=== PATIENT | female | born 1965 | race Caucasian/White ===

== ENCOUNTER 2016-10-18 21:53 | Inpatient (IN) | payer MEDICAID, OTHER ==
[~2016-10-18] VITALS: Ht 170.2 cm; Wt 104.3 kg
[~2016-10-18 21:53] MED LIST: ACET-2991 PO; AMOX-999 PO; ONDA4TAB PO
--- NOTE | 2016-10-18 21:58 | NUR ---
Patient being evaluated by physician.
[2016-10-18] MEDS ORDERED: LORazepam 2 MG/ML VIAL IVP ONE (22:00)
[2016-10-18] MEDS ORDERED: KETOROLAC 30 MG/ML VIAL IVP ONE (22:00)
[2016-10-18] MEDS ORDERED: NACL 0.9% 1,000 ML IV ONE (22:00)
--- NOTE | 2016-10-18 22:04 | NUR ---
BIBA TO ER BED 5
[2016-10-18 22:05] VITALS: BP 148/89
--- NOTE | 2016-10-18 22:10 | NUR ---
GAUGE 20 IV LINE ESTABLISHED TO THE RIGHT FOREARM. NS 1 LITER @ 100 ML/HR,ATIVAN 2 MG IVP AND TORADOL 30 MG IVP GIVEN ORDERED.
--- NOTE | 2016-10-18 22:20 | NUR ---
PATIENT MORE CALM. PAIN BETTER. WENT FOR CT SCAN OF ABDOMEN AND PELVIS VIA GURNEY.
--- NOTE | 2016-10-18 22:32 | NUR ---
BACK FROM CT SCAN.
--- NOTE | 2016-10-18 22:45 | NUR ---
BLOOD DRAWN BY FEDER[employer] JUDICIAL LAW CLERK. VERBALIZED SOME IMPROVEMENT OF PAIN (8/10).
[2016-10-18 22:55] LABS: HEMATOCRIT 43.1 % (36-48); HEMOGLOBIN 14.1 g/dL (12.0-16.0); MEAN CORPUSCULAR HEMOGLOBIN 28 pg (27-31); MEAN CORPUSCULAR HGB CONC 33 g/dL (33-37); MEAN CORPUSCULAR VOLUME 86 fL (80-94); PLATELET COUNT (AUTO) 274 K/uL (140-450); RED BLOOD CELL COUNT(AUTO) 4.99 MIL/uL (4.20-5.40); RED CELL DISTRIBUTION WIDTH 13.3 % (11.6-13.7); WHITE BLOOD COUNT (AUTO) 14.9 K/uL (4.8-10.8)
[2016-10-18 23:08] LABS: BAND % (MANUAL) 21 % (0-8); LYMPHOCYTES % (MANUAL) 16 % (20-46); MONOCYTES % (MANUAL) 1 % (5-12); NEUTROPHILS % (MANUAL) 62 (43-65)
[2016-10-18 23:11] LABS: ANION GAP 12.6 (8-16); CALCIUM 9.2 mg/dL (8.5-10.1); CARBON DIOXIDE 28.7 mmol/L (21-32); POTASSIUM 3.3 mmol/L (3.5-5.1); TOTAL BILIRUBIN 0.3 mg/dL (0.0-1.0); TOTAL PROTEIN, SERUM 8.2 g/dL (6.4-8.2)
[2016-10-18 23:17] LABS: INR 1.1 (0.8-1.2); PARTIAL THROMBOPLASTIN TIME 23.3 secs (22-35.6); PROTHROMBIN TIME 10.4 secs (10.8-13.4)
[2016-10-18] MEDS ORDERED: fentaNYL 0.05 MG/ML VIAL IVP ONE (23:20)
[2016-10-18] MEDS ORDERED: LORazepam 2 MG/ML VIAL IVP PRN (23:25)
[2016-10-18] MEDS ORDERED: HYDROcodone/APAP 5/325 MG 1 TAB TAB PO PRN (23:25)
[2016-10-18] MEDS ORDERED: KCL 20 MEQ/WATER INJ PREMIX 100 ML IV SCH (23:30)
--- NOTE | 2016-10-18 23:30 | NUR ---
PT. ADMITTED TO TELEMETRY UNIT FOR INCARCERATED HERNIA. UNDER THE SERVICE OF . VS REMAIN STABLE.
--- NOTE | 2016-10-18 23:33 | NUR ---
SUBLIMAZE 50 MCG IVP GIVEN FOR PAIN=12/03.
[2016-10-18] MEDS ORDERED: PIPERACILLIN/TAZOBACTAM 3.375 GM in DEXTROSE 5% 50 ML IV SCH (23:40)
--- NOTE | 2016-10-19 | NUR ---
REPORT GIVEN TO RUBA NAPOLES. PT.GOING TO ROOM 119-A. PAIN BETTER. VS REMAIN STABLE.
[2016-10-19] MEDS ORDERED: ZOLPIDEM 5 MG TAB PO PRN (00:15)
--- NOTE | 2016-10-19 00:15 | NUR ---
TRANSFERRED TO FLOOR VIA ACLS PROTOCOL STABLE. TRANSFER UNEVENTFUL.
[2016-10-19] MEDS: NACL 0.9% 1,000 ML IV SCH ×2 (00:51→09:23)
[2016-10-19] MEDS ORDERED: PIPERACILLIN/TAZOBACTAM 3.375 GM VIAL IV ONE (00:57)
[2016-10-19 01:15] VITALS: BP 125/78
--- NOTE | 2016-10-19 01:30 | NUR ---
ADMITTED 51 Y.O.F.FROM ER.PLACED ON BED.ORIENTED TO ROOM.CALL SYSTEM EXPLAINED AND IN REACH.TELE APPLIED AND SHOWING SR.PT.IS AWAKE,ALERT AND ORIENTED.RESP UNLABORED IN RA.DENIED PAIN AT TIME OF ADMISSION.CARE PLAN DISCUSSED W/PT.SHE VERBALIZED UNDERSTANDING.SL PATENT IN RT.FA W/O REDNESS OR EDEMA AT SITE.WILL CONTINUE MONITORING.
[2016-10-19 01:41] LABS: CHOL/HDL RATIO 3.7 (1-4.5); MAGNESIUM 2.1 mg/dL (1.8-2.4); PHOSPHORUS 3.5 mg/dL (2.5-4.9)
[2016-10-19 04:00] VITALS: BP 109/65
--- NOTE | 2016-10-19 04:37 | NUR ---
IVF OF NS AT 100ML/H STARTED AND INFUSING WELL.ONE DOSE OF ZOSYN IVPB GIVEN.PT TOLERATED WELL.STARTED K-RIDER FOR PT.IV WAS INFILTRATED RESTARTED NEW IV LINE IN LT.FA W/#24 G IN 2ND ATTEMPT.PT COMPLAINED OF BURNING SENSATION.AND ASKED TO STOP K-RIDER IT DONE AND CALL RESIDENT HE SAID IN AM THEY WILL TAKE CARE OF THAT.
--- NOTE | 2016-10-19 06:21 | NUR ---
PT SLEEPING.NO S/S OF ANY DISCOMFORT NOTED.IVF IS IN PROGRESS.
[2016-10-19 06:36] LABS: FREE T4 (FREE THYROXINE) 1.06 ng/dL (0.76-1.46); THYROID STIMULATING HORMONE 5.99 uIU/mL (0.34-3.76)
--- NOTE | 2016-10-19 07:25 | NUR ---
REPORT RECIEVED FROM EPIC APPLICATION COORDINATOR NURSE, PT SLEEPING QUIETLY IN NAD, RESP EVEN UNLABORED ON ROOM AIR, IV TO L FA INFUSING WELL SITE CLEAR, NO IMMEDIATE NEEDS IDENTIFIED AT THIS TIME, CALL BEST WITHIN REACH, SAFETY MEASURES MET, SIDE RAILS UP X2, BED LOCKED IN LOW POSITION, WILL CONTINUE TO MONITOR
--- NOTE | 2016-10-19 07:56 | NUR ---
PATIENT HAS BEEN SCREENED AND CATEGORIZED MODERATE NUTRITION RISK. PATIENT WILL BE SEEN WITHIN 3-5 DAYS OF ADMISSION. 10/21/16-10/23/[address]
[2016-10-19 08:00] VITALS: BP 106/67
--- NOTE | 2016-10-19 10:05 | NUR ---
PT SITTING UP IN NAD, RESP EVEN UNLABORED, VISITOR AT BEDSIDE, NO IMMEDIATE NEEDS AT THIS TIME, POC DISCUSSED, CALL BEST WITHIN REACH, SAFETY MEASURES MET, WILL CONTINUE TO MONITOR
--- NOTE | 2016-10-19 12:24 | NUR ---
PER DR OWENS VIA PHONE, PT TO GO TO OR FOR HERNIA REPAIR, DR OWENS WILL CONSENT PT WHEN HE SEES PT, OR TEAM HERE TO TAKE PT NOW, PT AAOX4, VERBALIZES UNDERSTANDING OF PLAN, TO OR NOW ON MARC.
[2016-10-19] MEDS ORDERED: ONDANSETRON 4 MG/2 ML VIAL ONE (12:37)
[2016-10-19] MEDS ORDERED: ROCURONIUM 50 MG/5 ML VIAL IV ONE (12:37)
[2016-10-19] MEDS ORDERED: KETOROLAC 30 MG/ML VIAL ONE (12:37)
[2016-10-19] MEDS ORDERED: LIDOCAINE 2% 100 MG/5 ML SYR IVP ONE (12:37)
[2016-10-19] MEDS ORDERED: DEXAMETHASONE 4 MG/ML VIAL ONE (12:37)
[2016-10-19] MEDS ORDERED: DESFLURANE 240 ML BTL INH ONE (12:37)
[2016-10-19] MEDS ORDERED: PROPOFOL 200 MG/20 ML VIAL IV ONE (12:37)
[2016-10-19] MEDS ORDERED: SUCCINYLCHOLINE CHLORIDE 200 MG/10 ML VIAL IVP ONE (12:37)
[2016-10-19 12:40] LABS: BASOPHILS # (AUTO) 0.1 K/uL (0.00-0.22); BASOPHILS % (AUTO) 1.2 % (0.0-2.0); EOSINOPHILS # (AUTO) 0.2 K/uL (0-0.4); EOSINOPHILS % (AUTO) 2.1 % (0.0-4.0); HEMATOCRIT 39.6 % (36-48); LYMPHOCYTES # (AUTO) 2.2 K/uL (2.5-16.5); LYMPHOCYTES % (AUTO) 20.3 % (20.5-51.1); MEAN CORPUSCULAR HEMOGLOBIN 28 pg (27-31); MEAN CORPUSCULAR HGB CONC 33 g/dL (33-37); MEAN CORPUSCULAR VOLUME 86 fL (80-94); MONOCYTES # (AUTO) 0.6 K/uL (0.8-1.0); MONOCYTES % (AUTO) 5.9 % (1.7-9.3); NEUTROPHILS # (AUTO) 7.7 K/uL (1.8-7.7); NEUTROPHILS % (AUTO) 70.5 % (42.2-75.2); PLATELET COUNT (AUTO) 299 K/uL (140-450); RED BLOOD CELL COUNT(AUTO) 4.62 MIL/uL (4.20-5.40); WHITE BLOOD COUNT (AUTO) 10.8 K/uL (4.8-10.8)
[2016-10-19] MEDS ORDERED: BUPIVACAINE-MPF/EPI 0.25% 30 ML VIAL INJ ONE (12:52)
[2016-10-19 12:53] LABS: ANION GAP 12.4 (8-16); CALCIUM 8.3 mg/dL (8.5-10.1); CARBON DIOXIDE 25.5 mmol/L (21-32); CREATININE 0.8 mg/dL (0.6-1.3); POTASSIUM 3.9 mmol/L (3.5-5.1)
[2016-10-19 12:57] LABS: MAGNESIUM 2.1 mg/dL (1.8-2.4); PHOSPHORUS 3.4 mg/dL (2.5-4.9)
[2016-10-19] MEDS ORDERED: LACTOBACILLUS RHAMNOSUS GG 1 EACH CAP PO SCH (13:00)
[2016-10-19] MEDS ORDERED: POTASSIUM CHLORIDE 10 MEQ TABER PO SCH (13:00)
[2016-10-19] MEDS ORDERED: MIDAZOLAM 2 MG/2 ML VIAL ONE (13:05)
[2016-10-19] MEDS ORDERED: fentaNYL 0.05 MG/ML VIAL ONE (13:05)
[2016-10-19] MEDS ORDERED: ONDANSETRON 4 MG/2 ML VIAL IVP PRN (13:30)
[2016-10-19] MEDS: DEXT 5% / NACL 0.45% 1,000 ML IV SCH (15:15)
[2016-10-19 16:03] LABS: BASOPHILS # (AUTO) 0.2 K/uL (0.00-0.22); BASOPHILS % (AUTO) 1.6 % (0.0-2.0); EOSINOPHILS # (AUTO) 0.3 K/uL (0-0.4); EOSINOPHILS % (AUTO) 1.9 % (0.0-4.0); HEMATOCRIT 39.1 % (36-48); LYMPHOCYTES # (AUTO) 1.7 K/uL (2.5-16.5); LYMPHOCYTES % (AUTO) 11.1 % (20.5-51.1); MEAN CORPUSCULAR HEMOGLOBIN 28 pg (27-31); MEAN CORPUSCULAR HGB CONC 33 g/dL (33-37); MEAN CORPUSCULAR VOLUME 86 fL (80-94); MONOCYTES # (AUTO) 0.2 K/uL (0.8-1.0); MONOCYTES % (AUTO) 1.2 % (1.7-9.3); NEUTROPHILS % (AUTO) 84.2 % (42.2-75.2); PLATELET COUNT (AUTO) 310 K/uL (140-450); RED BLOOD CELL COUNT(AUTO) 4.56 MIL/uL (4.20-5.40); RED CELL DISTRIBUTION WIDTH 13.1 % (11.6-13.7); WHITE BLOOD COUNT (AUTO) 15.4 K/uL (4.8-10.8)
--- NOTE | 2016-10-19 16:03 | NUR ---
FAXED INITIAL REVIEW TO [facility] [phone] PHONE ALBERTO [phone]
[2016-10-19 16:18] LABS: ANION GAP 11.8 (8-16); CALCIUM 8.2 mg/dL (8.5-10.1); CARBON DIOXIDE 26.3 mmol/L (21-32); CREATININE 0.9 mg/dL (0.6-1.3); POTASSIUM 4.1 mmol/L (3.5-5.1)
--- NOTE | 2016-10-19 16:48 | NUR ---
PT RETURNED FROM PACU, PT AWAKE, DROWSY, SPEAKS CLEARLY, RESP EVEN UNLABORED ON ROOM AIR, NG TUBE TO RIGHT NARE, IV SITES BILAT HANDS CLEAR, MID ABD DRESSING AND BAND AIDS X5 CLEAN DRY INTACT, ABD SOFT, NON DISTENDED, VITALS STABLE, PT PLACED BACK ON DATA ANALYSIS ASSISTANT, CALL BEST WITH IN REACH, WILL CONTINUE TO MONITOR
[2016-10-19 16:50] VITALS: BP 118/69
[2016-10-19] MEDS: PIPER/TAZO 3.375GM/D5W PREMIX 50 ML IV SCH (17:38)
[2016-10-19] MEDS: MORPHINE SULFATE 4 MG/ML SYR IVP PRN (17:44)
--- NOTE | 2016-10-19 19:27 | NUR ---
ENDORSED PLAN OF CARE. WILL CONTINUE TO MONITOR.
--- NOTE | 2016-10-19 19:30 | NUR ---
RECEIVED PT FROM ANA RN PT [place] SPEAKER AAOX4 NG TUBE ON INTERMITTENT SUCTION, IV ON RT WRIST INFUSING WELL ON TELEMETRY SR ABD 3 BAND AIDS DRY AND INTACT AND MIDDLE ABD DRESSING DRY AND INTACT, HUNT CATH DRAINING WELL YELLOW URINE, ON TELEMETRY ST 104 INITIAL ASSESSMENT DONE
--- NOTE | 2016-10-19 19:31 | NUR ---
ABD WITH 5 BAND AIDS AND ONE MIDDLE DRESSING DRY AND INTACT
[2016-10-19 20:00] VITALS: BP 117/77
--- NOTE | 2016-10-19 20:00 | NUR ---
DR OWENS CALLED TO BE NOTIFY PT CONDITION AND ORDER TO FOLLOW
[2016-10-19] MEDS: HYDROmorphone 1 MG/ML AMP IVP PRN (20:47)
--- NOTE | 2016-10-19 20:47 | NUR ---
PT ASLEEP, CAN NOT DO IS
--- NOTE | 2016-10-19 23:00 | NUR ---
AFTER PAIN MEDIC GIVEN PT SLEEP QUIET NOT DISTRESS NOTED
[2016-10-20] VITALS: BP 130/89
[2016-10-20] MEDS: PIPER/TAZO 3.375GM/D5W PREMIX 50 ML IV SCH ×4 (00:05→17:32)
--- NOTE | 2016-10-20 01:07 | NUR ---
PT SLEEPING WELL NOT DISTRESS NOTES NG TUBE ON INTERMITTENT SUCTION AND HUNT CATH DRAINING WELL YELLOW URINE ON TELEMETRY SR REPOSITIONED NOT DISTRESS NOTED
--- NOTE | 2016-10-20 02:00 | NUR ---
PT PULL OUT THE NGTUBE AND A NEW NG TUBE WAS INSERTED DRAINING LIGHT GREENISH COLOR
[2016-10-20] MEDS: HYDROmorphone 1 MG/ML AMP IVP PRN (02:21)
[2016-10-20 04:00] VITALS: BP 110/69
--- NOTE | 2016-10-20 04:00 | NUR ---
PT REPOSITIONED NT GUBE DRAINING GREENISH COLOR DENIES ANY PAIN AT THIS TIME ONTELE SR
[2016-10-20] MEDS: DEXT 5% / NACL 0.45% 1,000 ML IV SCH (05:44)
[2016-10-20 06:23] LABS: BASOPHILS # (AUTO) 0.2 K/uL (0.00-0.22); BASOPHILS % (AUTO) 1.7 % (0.0-2.0); EOSINOPHILS # (AUTO) 0.2 K/uL (0-0.4); EOSINOPHILS % (AUTO) 1.8 % (0.0-4.0); HEMATOCRIT 36.1 % (36-48); LYMPHOCYTES # (AUTO) 1.3 K/uL (2.5-16.5); LYMPHOCYTES % (AUTO) 9.6 % (20.5-51.1); MEAN CORPUSCULAR HEMOGLOBIN 29 pg (27-31); MEAN CORPUSCULAR HGB CONC 33 g/dL (33-37); MEAN CORPUSCULAR VOLUME 86 fL (80-94); MONOCYTES # (AUTO) 0.6 K/uL (0.8-1.0); MONOCYTES % (AUTO) 4.3 % (1.7-9.3); NEUTROPHILS % (AUTO) 82.6 % (42.2-75.2); PLATELET COUNT (AUTO) 272 K/uL (140-450); RED BLOOD CELL COUNT(AUTO) 4.19 MIL/uL (4.20-5.40); RED CELL DISTRIBUTION WIDTH 12.9 % (11.6-13.7)
[2016-10-20 06:41] LABS: ANION GAP 9.7 (8-16); CARBON DIOXIDE 26.9 mmol/L (21-32); CREATININE 0.8 mg/dL (0.6-1.3); POTASSIUM 3.6 mmol/L (3.5-5.1)
--- NOTE | 2016-10-20 06:44 | NUR ---
CHARGE NURSE INSERT IV ON RT FA GAUGE # 22 PT GETTING SLEEP HUNT CATH DRAINING YELLOW URINE, REPOSITIONED Q2H
[2016-10-20 06:53] LABS: MAGNESIUM 1.9 mg/dL (1.8-2.4); PHOSPHORUS 3.8 mg/dL (2.5-4.9)
--- NOTE | 2016-10-20 07:00 | NUR ---
PT AWAKE ALERT AND ORIENTED, NO SIGNS OF ACUTE DISTRESS. BREATHING EVENLY AND UNLABORED. SKIN IS WARM AND DRY. S/P EXPLORATORY LAP FOR UMBILICAL HERNIA REPAIR AND ISCHEMIC BOWEL. NOTED MIDLINE SURGICAL WOUND WITH DRESSING AND 5 SMALL ABDOMINAL INCISIONS WITH BAND AIDS. NO NOTED BLEEDING OR DISCHARGE ON SITE. NG TUBE IN PLACE ON RIGHT NARE ON INTERMITTENT SUCTION. NOTED 10CC OF GASTRIC CONTENT. HUNT CATHETER IN PLACE. NOTED 75ML OF CLOUDY YELLOW URINE. SAFETY PRECAUTIONS MAINTAINED. WITH C/O ABDOMINAL PAIN 8/10. WILL MEDICATE ORDERED. CALL LIGHT WITHIN REACH.
[2016-10-20 07:04] LABS: WHITE BLOOD COUNT (AUTO) 13.3 K/uL (4.8-10.8)
[2016-10-20 08:00] VITALS: BP 119/73
--- NOTE | 2016-10-20 08:15 | NUR ---
SPOKE TO DR OWENS NEW MED ORDERS RECEIVED, WILL CARRY OUT.
[2016-10-20] MEDS: LACTOBACILLUS RHAMNOSUS GG 1 EACH CAP PO SCH (08:22)
--- NOTE | 2016-10-20 08:26 | NUR ---
PT AWAKE ALERT AND RESPONSIVE, NO SIGNS OF ACUTE DISTRESS. ENDORSED TO ASSIGNED AM NURSE JOSE MARTIN RN FOR CONTINUITY OF CARE.
[2016-10-20] MEDS: MORPHINE SULFATE 4 MG/ML SYR IVP PRN ×3 (08:29→18:11)
[2016-10-20 09:11] LABS: T4 (THYROXINE) 8.3 ug/dL (4.5-12.0)
--- NOTE | 2016-10-20 10:10 | NUR ---
CHANGED IVF SEEN PATIENT AT THE BEDSIDE NGT IN PLACE CONNECTED TO LOW INTERMITTENT SUCTION
--- NOTE | 2016-10-20 10:10 | NUR ---
RECEIVED PATIENT FROM NURSE LATESHA. TRANSFER OF CARE. PT IS AWAKE AND ALERT. IV PATENT. NOSX OF INFILTRATION
[2016-10-20] MEDS: POTASSIUM CHL 20 MEQ/D5-1/2NS 1,000 ML IV SCH ×2 (10:20→17:32)
--- NOTE | 2016-10-20 12:10 | NUR ---
BS LEVEL CHECKED. NO COVERAGE NEED AT THIS TIME. PERFORMED PERSONAL CARE. CHANGED LINENS AND GOWN. WOUND MARKED. PAIN MEDS TO BE GIVEN.
[2016-10-20 12:22] VITALS: BP 119/68
--- NOTE | 2016-10-20 12:41 | NUR ---
CM NOTE FAXED CONCURRENT REVIEW TO [facility] [phone] PHONE ALBERTO [phone]
[2016-10-20 16:30] VITALS: BP 119/78
--- NOTE | 2016-10-20 16:35 | NUR ---
LOC AWAKE AND ALERT TOLERATED INCENTIVE SPIROMETRY (IS) WELL WITHOUT INCIDENT ENCOURAGED PATIENT TO USE IS EVERY TWO HOURS WHILE AWAKE FAMILY MEMBER AT BEDSIDE
--- NOTE | 2016-10-20 17:00 | NUR ---
ROUNDS MADE. VS CHECKED AND WNL. REEDUCATED PATEINT TO USE INCENTIVE SPIROMETRY ORDERED. AT THE BEDSIDE
--- NOTE | 2016-10-20 18:00 | NUR ---
PATIENT ABLE TO SIT UP DANGLE FEET AT THE BEDSIDE. MILD PAIN REPORTED.
--- NOTE | 2016-10-20 19:03 | NUR ---
ROUNDS MADE. PT IN BED. SLEEPING. NGT IN PLACE. SIDE RAILS UP CALL LIGHT WITHIN REACH
--- NOTE | 2016-10-20 19:15 | NUR ---
RECEIVED PT IN STABLE CONDITION FROM DONY BROWNING. NO SOB, NO SIGNS OF DISTRESS. PT IS AOX4. PT WITH GENERALIZED WEAKNESS. PT C/O PAIN, WILL MEDICATE PER MD ORDER. PT WITH NGT TO RT NARE, RUNNING AT LOW/INTERMITTENT SUCTION. PT TOLERATING WELL. HUNT IN PLACE DRAINING TO GRAVITY. VS STABLE ON ROOM AIR. IV TO RT FA 22G PATENT, ASYMPTOMATIC, INTACT, IVF RUNNING. SCDS IN PLACE. PT S/P HERNIA REPAIR AND BOWEL RESECTION ON 10/19, MULTIPLE INCISIONS TO ABDOMEN, DRESSINGS DRY AND INTACT. FAMILY AT BEDSIDE. PLAN OF CARE DISCUSSED WITH PT. SAFETY MEASURES IN PLACE. CALL LIGHT WITHIN REACH. WILL CONTINUE TO MONITOR.
[2016-10-20] MEDS: KETOROLAC 30 MG/ML VIAL IVP PRN (20:25)
--- NOTE | 2016-10-20 20:25 | NUR ---
MEDICATED PT FOR PAIN PER MD ORDER. PT TOLERATED WELL. NO SOB, NO SIGNS OF DISTRESS. NGT IN PLACE AND RUNNING TO SUCTION. IV SITE ASYMPTOMATIC, INTACT, PATENT, IVF RUNNING. PLAN OF CARE DISCUSSED WITH PT. SAFETY MEASURES IN PLACE. CALL LIGHT WITHIN REACH. WILL CONTINUE TO MONITOR.
--- NOTE | 2016-10-20 22:25 | NUR ---
PT ASLEEP IN BED. NO SOB NO SIGNS OF DISTRESS. IV SITE ASYMPTOMATIC, INTACT, PATENT, IVF RUNNING. NGT IN PLACE RUNNING TO SUCTION. SAFETY MEASURES IN PLACE. CALL LIGHT WITHIN REACH. WILL CONTINUE TO MONITOR.
[2016-10-21] VITALS: BP 131/75
[2016-10-21] MEDS: PIPER/TAZO 3.375GM/D5W PREMIX 50 ML IV SCH ×4 (00:14→17:08)
[2016-10-21] MEDS: MORPHINE SULFATE 4 MG/ML SYR IVP PRN ×4 (00:15→18:44)
--- NOTE | 2016-10-21 00:15 | NUR ---
VS STABLE ON ROOM AIR. NO SOB, NO SIGNS OF DISTRESS. IV SITE ASYMPTOMATIC, INTACT, PATENT, IVF RUNNING. PT C/O PAIN, MEDICATED PER MD ORDER, PT TOLERATED WELL. PLAN OF CARE DISCUSSED WITH PT. SAFETY MEASURES IN PLACE. CALL LIGHT WITHIN REACH. WILL CONTINUE TO MONITOR.
--- NOTE | 2016-10-21 02:13 | NUR ---
PT ASLEEP IN BED. NO SOB, NO SIGNS OF DISTRESS. IV SITE ASYMPTOMATIC, INTACT, PATENT, IVF RUNNING. NGT IN PLACE RUNNING TO SUCTION. SAFETY MEASURES IN PLACE. CALL LIGHT WITHIN REACH. WILL CONTINUE TO MONITOR.
[2016-10-21] MEDS: POTASSIUM CHL 20 MEQ/D5-1/2NS 1,000 ML IV SCH ×4 (02:57→16:17)
[2016-10-21] MEDS: ONDANSETRON 4 MG/2 ML VIAL IVP PRN ×3 (04:42→18:44)
[2016-10-21] MEDS: KETOROLAC 30 MG/ML VIAL IVP PRN ×2 (04:42→21:51)
--- NOTE | 2016-10-21 04:42 | NUR ---
PT STATED SHE WOKE UP, AND TRIED TO STAND UP, AND WHEN SHE STOOD UP SHE FELT DIZZY, NAUSEOUS, AND PAIN IN HER ABDOMEN, PT STATED SHE IMMEDIATELY GOT BACK INTO BED AND CALLED FOR THE NURSE. VS STABLE ON ROOM AIR, IV SITE ASYMPTOMATIC, INTACT, PATENT IVF RUNNING. HUNT IN PLACE DRAINING TO GRAVITY, NGT IN PLACE RUNNING TO SUCTION. NO SOB, NO SIGNS OF DISTRESS. MEDICATED PT FOR PAIN AND NAUSEA PER MD ORDER. PT TOLERATED WELL. PLAN OF CARE DISCUSSED WITH PT. SAFETY MEASURES IN PLACE. CALL LIGHT WITHIN REACH. WILL CONTINUE TO MONITOR.
[2016-10-21 06:16] LABS: HEMOGLOBIN A1C 5.5 % (4.8-5.6)
[2016-10-21 06:17] LABS: BASOPHILS # (AUTO) 0.2 K/uL (0.00-0.22); BASOPHILS % (AUTO) 1.5 % (0.0-2.0); EOSINOPHILS # (AUTO) 0.2 K/uL (0-0.4); EOSINOPHILS % (AUTO) 1.5 % (0.0-4.0); HEMATOCRIT 34.5 % (36-48); HEMOGLOBIN 11.7 g/dL (12.0-16.0); LYMPHOCYTES # (AUTO) 2.3 K/uL (2.5-16.5); LYMPHOCYTES % (AUTO) 21.2 % (20.5-51.1); MEAN CORPUSCULAR HEMOGLOBIN 29 pg (27-31); MEAN CORPUSCULAR HGB CONC 34 g/dL (33-37); MEAN CORPUSCULAR VOLUME 85 fL (80-94); MONOCYTES # (AUTO) 0.6 K/uL (0.8-1.0); MONOCYTES % (AUTO) 5.6 % (1.7-9.3); NEUTROPHILS # (AUTO) 7.6 K/uL (1.8-7.7); NEUTROPHILS % (AUTO) 70.2 % (42.2-75.2); PLATELET COUNT (AUTO) 250 K/uL (140-450); RED BLOOD CELL COUNT(AUTO) 4.08 MIL/uL (4.20-5.40); WHITE BLOOD COUNT (AUTO) 10.9 K/uL (4.8-10.8)
[2016-10-21 06:20] LABS: ANION GAP 9.1 (8-16); CALCIUM 7.9 mg/dL (8.5-10.1); CARBON DIOXIDE 27.5 mmol/L (21-32); CREATININE 0.8 mg/dL (0.6-1.3); POTASSIUM 3.6 mmol/L (3.5-5.1)
[2016-10-21 06:26] LABS: ALBUMIN 2.6 g/dL (3.4-5.0); MAGNESIUM 1.7 mg/dL (1.8-2.4)
--- NOTE | 2016-10-21 07:19 | NUR ---
ENDORSED PT IN STABLE CONDITION TO DONY ANDERSON. ALL NEEDS HAVE BEEN MET AT THIS TIME.
--- NOTE | 2016-10-21 07:20 | NUR ---
PT AWAKE ALERT AND ORIENTED X4, NO SIGNS OF ACUTE DISTRESS, BREATHING EVEN AND UNLABORED BILATERALLY ON ROOM AIR, NG TUBE IN RIGHT NARE ON LOW INTERMITTENT SUCTION, ABDOMEN SOFT AND FLAT WITH MIDLINE ABDOMINAL INCISION COVERED WITH DRESSING, 3 BANDAGES ON LEFT SIDE OF ABDOMEN AND TWO BANDAGES ON RIGHT SIDE OF ABDOMEN, COMPLAINT OF PAIN 9/10 ON ABDOMEN, BOWEL SOUNDS ACTIVE IN ALL FOUR QUADRANTS, HUNT CATHETER IN PLACE NO SIGNS OF INFECTION, ON BEDREST AND AMBULATORY, SKIN WARM AND DRY, IV PATENT NO REDNESS, SCD'S IN PLACE, BED IN LOW POSITION WITH BILATERAL HALF SIDE RAILS UP, CALL LIGHT WITHIN REACH.
[2016-10-21 08:00] VITALS: BP 140/72
[2016-10-21] MEDS: LACTOBACILLUS RHAMNOSUS GG 1 EACH CAP PO SCH (08:23)
--- NOTE | 2016-10-21 08:30 | NUR ---
SEEN BY DR MARLEY, OKAY TO CHANGE NG TUBE SUCTION TO HIGH INTERMITTENT, WILL CARRY OUT.
--- NOTE | 2016-10-21 09:22 | NUR ---
FAXED TO [facility] [phone] PHONE [phone] ALBERTO
--- NOTE | 2016-10-21 12:45 | NUR ---
10/21/16 RD INITIAL ASSESSMENT COMPLETED PLEASE REFER TO NUTRITION ASSESSMENT UNDER CARE ACTIVITY FOR ESTIMATED NUTRITIONAL NEEDS. RD RECOMMENDATIONS: 1. WHEN MEDICALLY APPROPRIATE, SLOWLY ADVANCE DIET TO REGULAR TOLERATED. --PT NPO X2 DAYS 2. RD WILL F/U 2-3 DAYS; HIGH RISK. LILIYA TAYLOR RD
[2016-10-21 13:23] LABS: APPEARANCE,URINE HAZY (CLEAR); BILIRUBIN,URINE NEGATIVE (NEGATIVE); BLOOD, URINE NEGATIVE (NEGATIVE); COLOR,URINE YELLOW (YELLOW); LEUKOCYTE ESTERASE ,URINE NEGATIVE (NEGATIVE); NITRITE, URINE NEGATIVE (NEGATIVE); PROTEIN,URINE NEGATIVE (NEGATIVE); UGLUCOSE NEGATIVE (NEGATIVE)
[2016-10-21] MEDS ORDERED: MAG SULF 2000 MG/WATER PREMIX 50 ML IV SCH (13:30)
--- NOTE | 2016-10-21 13:30 | NUR ---
SPOKE WITH DR LOPEZ ABOUT MAGNESIUM LEVEL OF 1.7, RECEIVED ORDER FOR MAG RIDER 2G IVPB X1, WILL CARRY OUT.
[2016-10-21 14:14] LABS: RBC,URINE NONE SEEN /HPF (0-5); WBC,URINE 0-3 /HPF (0-5)
[2016-10-21 14:15] LABS: BACTERIA,URINE OCCASSIONAL /HPF (None Seen); SQUAMOUS EPITHELIAL CELL,UR 0-3 (FEW) /LPF (0-3 (FEW))
[2016-10-21 15:45] VITALS: BP 124/72
--- NOTE | 2016-10-21 18:56 | NUR ---
ALERT AND AWAKE, NO SIGNS OF ACUTE DISTRESS, ENDORSED TO INVESTMENT STRATEGIST NURSE FOR CONTINUITY OF CARE.
--- NOTE | 2016-10-21 19:05 | NUR ---
PATIENT IS CURRENTLY RESTING IN BED WITH NGTUBE IN PLACE CONNECTED TO HIGH SUCTION.FAMILY GIVING THE PATIENT A BED BATH WITH WASH CLOTHS.PATIENT STATES,"IM FEELING VERY TIRED AND I WOULD LIKE TO SLEEP."FAMILY AT BEDSIDE WITH THE PATIENT THEY TELL ME."WE WILL BE LEAVING SOON."IVF INFUSING WELL IV SITE PATENT.CALL LIGHT WITHIN REACH WILL CHECK HER ABDOMINAL DRESSING LATER.CALL LIGHT WITHIN REACH.
[2016-10-21 20:00] VITALS: BP 127/74
--- NOTE | 2016-10-21 20:00 | NUR ---
Patient's Plan of Care was discussed and reviewed with SURGICAL RN: LIEN DAWSON
--- NOTE | 2016-10-21 20:20 | NUR ---
PATIENT'S FAMILY HAS LEFT FOR THE NIGHT. PATIENT IS OK FOR ME TO CHECK HER ABDOMINAL DRESSINGS.SHE HAS A MIDLINE DRESSING WITH TWO DARK CIRCLES OF DRAINAGE NOTED TO THE ANTERIOR OF THE DRESSING AND BOTH CIRCLES BEEN MARKED AND THEN SHE HAS BANDAIDS TO RT AND LT SIDES OF THE MIDLINE INCISION ABOUT 5 BANDAIDS SOME HAVE OLD BLOODY DRAINAGE. PATIENT IS ASKING ME WHEN WILL HER DRESSINGS BE CHANGED.I EXPLAINED THAT THERE IS NO ORDER FOR WOUND CARE AND PHYSICIAN HASN'T SAID ANYTHING ABOUT CHANGING THE DRESSING, BUT I WILL CALL GRACIELA AND ASK. PATIENT VERBALIZES UNDERSTANDING.
--- NOTE | 2016-10-21 23:15 | NUR ---
GRACIELA ORTIZD I WILL ASK HIM IF HE WANTS DRESSING CHANGE TO THE PATIENT TONIGHT.
--- NOTE | 2016-10-21 23:18 | NUR ---
PATIENT IS CURRENTLY RESTING IN BED MD OWENS CALLED BACK AND I INFORMED HIM THAT PATIENT IS CONCERNED THAT HER ABDOMINAL DRESSINGS HAVE NOT BEEN CHANGED SINCE SHE HAD THE PROCEDURE I ASKED MD OWENS IF DRESSINGS SHOULD BE CHANGED MD SAID,"THE DRESSINGS CAN BE CHANGED TOMORROW MORNING."NO NEW ORDER GIVEN.WILL WAIT FOR MD OWENS TO COME TOMORROW AND SEE THE PATIENT AND GIVE WOUND CARE ORDERS.
[2016-10-22] MEDS: PIPER/TAZO 3.375GM/D5W PREMIX 50 ML IV SCH ×4 (00:16→17:26)
[2016-10-22] MEDS: POTASSIUM CHL 20 MEQ/D5-1/2NS 1,000 ML IV SCH ×4 (00:20→23:55)
[2016-10-22 00:40] VITALS: BP 115/72
--- NOTE | 2016-10-22 00:45 | NUR ---
I WENT TO SEE THE PATIENT PT STATES,"SHE HAS PHLEGM MUCUS SHE NEEDS TO SPIT OUT.I ENCOURAGED COUGHING AND DEEP BREATHING AND EXPLAINED TO THE PATIENT THE IMPORTANCE OF DOING THE EXERCISES TO PREVENT ANY LUNG COMPLICATIONS ESPECIALLY AFTER SURGERY.PATIENT REFUSED AT THIS TIME PATIENT STATES,"I CAN'T COUGH IT HURTS TO MUCH!" PT IS IRRITABLE I GAVE HER A PILLOW AND TRY TO ENCOURAGE AGAIN FOR HER TO TRY TO COUGH AND DEEP BREATH HOLDING THE PILLOW BUT PATIENT REFUSED.PT STATES,"NO IT HURTS A LOT!"PATIENT IS HOWEVER SPITING OUT THE PLEGM AND SECRETIONS.PATIENT NEEDS MET I GAVE HER WARM BLANKETS AND REMOVED SOME BLANKETS.PATIENT ALSO REFUSED SCD'S I EXPLAINED TO THE PATIENT AGAIN THE IMPORTANCE OF WEARING THEM FOR DVT PROPHALAXIS PT REFUSED.
--- NOTE | 2016-10-22 00:47 | NUR ---
PATIENT NGT CONTINUES TO BE IN PLACE AND CONNECTED TO SUCTION.NGT CONTINUES TO BE WELL SECURED IN PATIENTS NOSE.DONY SAAVEDRA WILL BE INFORMED SO HE CAN GIVE THE PATIENT HER PAIN MEDICATION AND LATER I CAN ASSIST THE PATIENT WITH COUGH AND DEEP BREATHING EXERCISES.LATER WHEN HER PAIN LEVEL IS LOW MAYBE SHE WILL BE MORE COMPLIANT.
[2016-10-22] MEDS: MORPHINE SULFATE 4 MG/ML SYR IVP PRN ×2 (01:19→13:41)
--- NOTE | 2016-10-22 02:45 | NUR ---
PATIENT IS CURRENTLY SLEEPING BUT WOKE UP I ASKED HER IS SHE IS DOING OK SHE SAYS YES.IVF INFUSING WELL IV SITE PATENT.NGTUBE IN PLACE AND CONTINUES TO BE CONNECTED TO SUCTION WILL CONTINUE TO MONITOR.PATIENT REFUSED SCD'S PATIENT STATES,"I WOULD LIKE TO WEAR THEM LATER THIS MORNING."CALL LIGHT WITHIN REACH WILL CONTINUE TO MONITOR.
--- NOTE | 2016-10-22 03:30 | NUR ---
CANISTER WAS EMPTIED AND DISCARDED SO FAR OUTPUT TO SUCTION CANISTER IS 300ML AND CONTINUES TO BE TO LOW INTERMITTENT SUCTION. PATIENT WAS GIVEN SOME ICE CHIPS.AND WILL CONTINUE TO OBSERVE THE PATIENT.SHE IS ABLE TO MAKE NEEDS KNOWN.
[2016-10-22] MEDS ORDERED: ALBUTEROL SULFATE/IPRATROPIU 3 ML SOL IH PRN (03:55)
--- NOTE | 2016-10-22 04:00 | NUR ---
PATIENT SLEEPING COMFORTABLY IN BED NO DISTRESS WILL CONTINUE TO MONITOR.
[2016-10-22] MEDS: KETOROLAC 30 MG/ML VIAL IVP PRN ×2 (05:17→19:02)
--- NOTE | 2016-10-22 06:15 | NUR ---
PATIENT AWAKE AT THIS TIME ENCOURAGED TO DO AND USE INCENTIVE SPIROMETER.PATIENT STATES SHE IS FEELING VERY DIZZY AND PATIENT STATES SHE HAS BEEN HAVING NIGHTMARES.PATIENT ALSO SAID SHE WOULD LIKE TO GET OUT OF BED SHE IS TIRED OF LAYING DOWN BUT SHE GETS VERY DIZZY AND IS UNABLE TO.WILL ENDORSE TO AM SHIFT NURSE POSSIBLY THE EFFECTS OF THE MORPHINE ARE MAKING THE PATIENT FEEL THIS WAY SO MD MARLEY CAN BE INFORMED WHEN HE COMES IN.TOTAL OF 300ML OF DARK BROWNISH DRAINAGE EMPTIED FROM SUCTION CONTAINER AND ON THE NEW SUCTION CONTAINER THERE IS 100ML SO TOTAL OF 400ML ON MY SHIFT.PATIENT CONTINUES TO BE CONNECTED TO LOW INTERMITTENT SUCTION AND CURRENTLY STABLE.
[2016-10-22 06:45] LABS: BASOPHILS # (AUTO) 0.1 K/uL (0.00-0.22); BASOPHILS % (AUTO) 1.2 % (0.0-2.0); EOSINOPHILS # (AUTO) 0.3 K/uL (0-0.4); EOSINOPHILS % (AUTO) 2.6 % (0.0-4.0); LYMPHOCYTES # (AUTO) 1.8 K/uL (2.5-16.5); LYMPHOCYTES % (AUTO) 17.8 % (20.5-51.1); MEAN CORPUSCULAR HEMOGLOBIN 28 pg (27-31); MEAN CORPUSCULAR HGB CONC 33 g/dL (33-37); MEAN CORPUSCULAR VOLUME 86 fL (80-94); MONOCYTES # (AUTO) 0.7 K/uL (0.8-1.0); MONOCYTES % (AUTO) 6.7 % (1.7-9.3); NEUTROPHILS # (AUTO) 6.9 K/uL (1.8-7.7); NEUTROPHILS % (AUTO) 71.7 % (42.2-75.2); PLATELET COUNT (AUTO) 266 K/uL (140-450); RED BLOOD CELL COUNT(AUTO) 4.21 MIL/uL (4.20-5.40); RED CELL DISTRIBUTION WIDTH 12.6 % (11.6-13.7); WHITE BLOOD COUNT (AUTO) 9.8 K/uL (4.8-10.8)
--- NOTE | 2016-10-22 07:05 | NUR ---
RECEIVED PATIENT REPORT AT BEDSIDE. PATIENT IS AWAKE, ALERT AND ORIENTED. NO S/S OF DISTRESS NOTED. NGT IN PLACE ON LOW INTERMITTENT SUCTION. DARK BROWN DRAINAGE NOTED. HUNT CATHETER IN PLACE, DRAINING CLEAR YELLOW URING. PATIENT C/O NAUSEA. WILL MEDICATE. 4 ABDOMINAL INCISIONS NOTED. DRESSINGS CLEAN DRY AND INTACT. IV TO THE LEFT HAND INTACT WITH IVF INFUSING WELL. BED LOWERED WITH CALL LIGHT WITHIN REACH. WILL CONTINUE TO MONITOR
[2016-10-22 07:07] LABS: ANION GAP 13.7 (8-16); CALCIUM 8.2 mg/dL (8.5-10.1); CARBON DIOXIDE 24.9 mmol/L (21-32); CREATININE 0.8 mg/dL (0.6-1.3); POTASSIUM 3.6 mmol/L (3.5-5.1)
[2016-10-22 07:26] LABS: MAGNESIUM 2.3 mg/dL (1.8-2.4); PHOSPHORUS 3.7 mg/dL (2.5-4.9)
--- NOTE | 2016-10-22 07:29 | NUR ---
PATIENT STABLE REPORT ENDORSED TO DONY BARR AT BEDSIDE HE WILL RESUME CARE OF THE PATIENT.
[2016-10-22 08:00] VITALS: BP 131/83
[2016-10-22] MEDS: ONDANSETRON 4 MG/2 ML VIAL IVP PRN ×2 (08:31→12:51)
[2016-10-22] MEDS: LACTOBACILLUS RHAMNOSUS GG 1 EACH CAP PO SCH ×2 (09:00→10:01)
--- NOTE | 2016-10-22 09:45 | NUR ---
PATIENT ENCOURAGED TO AMBULATE BUT PATIENT STATES SHE FEELS TOO DIZZY TO GET UP. PATIENT ALREADY MEDICATED. WILL REASSESS
[2016-10-22] MEDS: SIMETHICONE 80 MG TAB.CHEW PO PRN ×2 (10:00→20:17)
--- NOTE | 2016-10-22 10:07 | NUR ---
PER DR WATERS, PO MEDICATIONS CAN BE ADMINISTERED VIA NGT. SCHEDULED MEDICATION GIVEN
--- NOTE | 2016-10-22 12:39 | NUR ---
NGT DISCONTINUED. PATIENT TOLERATED WELL
--- NOTE | 2016-10-22 12:39 | NUR ---
100ML DARK BROWN DRAINAGE NOTED
--- NOTE | 2016-10-22 13:50 | NUR ---
HUNT CATHETER DISCONTINUED. 1L CLEAR YELLOW URINE OUTPUT NOTED. PT TOLERATED WELL
[2016-10-22 16:00] VITALS: BP 137/90
--- NOTE | 2016-10-22 17:30 | NUR ---
PATIENT SEEN BR DR OWENS. DRESSING TO THE ABD INCISIONS TAKEN OUT. DR ORDERS TO CLEAN INCISIONS WITH BETADINE AND LEAVE LAWRENCE
--- NOTE | 2016-10-22 17:46 | NUR ---
PATIENT AMBULATED TO THE BATHROOM TO VOID
--- NOTE | 2016-10-22 19:18 | NUR ---
PATIENT REPORT GIVEN AT BEDSIDE. PATIENT ENDORSED IN STABLE CONDITION
--- NOTE | 2016-10-22 19:19 | NUR ---
PATIENT IS CURRENTLY AWAKE ALERT ORIENTED SMILING,IVF INFUSING WELL IV SITE PATENT NO INFILTRATION NOTED.ABDOMINAL INCISION WITH TORIE CURRENTLY DRY AND INTACT AND LAWRENCE AND ALSO RT AND LT SIDE ABDOMINAL INCISIONS WITH TORIE ARE ALSO RAVELER. NO S/S OF REDNESS AROUND INCISION SITES OR DRAINAGE NOTED AT THIS TIME.ALL SURGICAL INCISIONS ARE CLEAN AND DRY.PATIENT CONTINUES TO WEAR THE SCD'S TO BOTH LOWER EXTREMITIES.PATIENT ENCOURAGED TO USE THE INCENTIVE SPIROMETER BREATHING EXERCISES. PT VERBALIZES UNDERSTANDING.CALL LIGHT WITHIN REACH.FAMILY AT BEDSIDE.
--- NOTE | 2016-10-22 19:36 | NUR ---
PATIENT IS CURRENTLY USING HER INCENTIVE SPIROMETER AND USED IT A FEW TIMES,PATIENT DID VERY WELL WITH THE EXERCISES AND PATIENT STATES,"IM FEEL PROUD OF MYSELF AND IM VERY HAPPY." SIGNIFICANT OTHER AT BEDSIDE WITH THE PATIENT AT THIS TIME.CALL LIGHT WITHIN REACH.
--- NOTE | 2016-10-22 20:00 | NUR ---
Patient's Plan of Care was discussed and reviewed with TAIL TRIMMER: LIEN DAWSON
--- NOTE | 2016-10-22 20:01 | NUR ---
NO DISTRESS/SOB/WHEEZING NOTED AT THIS TIME. NO INDICATION FOR HHN PRN TX.
[2016-10-22 20:10] VITALS: BP 134/82
--- NOTE | 2016-10-22 21:05 | NUR ---
PATIENT IS CURRENTLY AMBULATING WITH THE ASSISTANCE OF HER IN THE HALLWAY AND TOLERATING ACTIVITY WELL AT THIS TIME.PATIENT STATES,"I WANTED TO GET OUT OF BED ALREADY IT FEELS GOOD TO WALK." PATIENT IS DRINKING SIPS OF WATER AT THIS TIME AND TOLERATING.IVF INFUSING WELL IV SITE PATENT.PATIENT STATES SHE SUFFERS FROM INSOMNIA AND I OFFERED A SLEEPING PILL FOR THE PATIENT SHE AGREES.
--- NOTE | 2016-10-22 21:14 | NUR ---
I MEDICATED THE PATIENT WITH SLEEPING PILL PATIENT DOESN'T WANT TO BE DISTURBED I ASKED HER IF I CAN WAKE HER UP FOR VITAL SIGNS AT MIDNIGHT PT STATES,"DON'T WAKE ME UP IF IM SLEEPING PLEASE." SO I TOLD THE PATIENT I WILL MAKE ROUNDS, BUT I WILL CHECK HER VITAL SIGNS EARLY IN THE MORNING PT AGREED.
--- NOTE | 2016-10-22 22:07 | NUR ---
MADE ROUNDS PATIENT AWAKE WATCHING TV PATIENT STATES,"I DON'T THINK THE SLEEPING PILL IS HELPING ME BUT ILL TRY TO SLEEP."WILL CONTINUE TO MONITOR.
[2016-10-23] VITALS: BP 129/75
--- NOTE | 2016-10-23 00:05 | NUR ---
PATIENT IS CURRENTLY RESTING IN BED BUT IV IS LEAKING IV WAS DISCONTINUED AND A NEW IV RESTARTED TO RT SIDE OF WRIST G#22 AT SECOND ATTEMPT WITH GOOD BLOOD RETURN.PATIENT TOLERATED PROCEDURE WELL. PATIENT NGA PAIN AT THIS TIME.WILL CONTINUE TO MONITOR.CALL LIGHT WITHIN REACH.
--- NOTE | 2016-10-23 02:20 | NUR ---
PATIENT CURRENTLY SLEEPING ON AND OFF IVF INFUSING WELL IV SITE PATENT NEEDS MET.CALL LIGHT WITHIN REACH.
[2016-10-23] MEDS: POTASSIUM CHL 20 MEQ/D5-1/2NS 1,000 ML IV SCH ×3 (03:01→21:10)
[2016-10-23] MEDS: HYDROcodone/APAP 10/325 MG 1 TAB TAB PO PRN ×3 (03:15→23:46)
--- NOTE | 2016-10-23 03:15 | NUR ---
PATIENT COMPLAINING THAT SHE IS COLD.MILANA DUMONT BROUGHT PATIENT A WARM BLANKET.THEN PATIENT ALSO COMPLAINS OF MODERATE INCISIONAL PAIN SO I MEDICATED HER WITH NORCO FOR MODERATE PAIN.THEN I WAS ABLE TO ASSESS THE INCISION SITES AND I ASKED THE PATIENT IF ITS OK TO CHECK AND TAKE PICTURES OF THE INCISION AND PATIENT AGREED TO PICTURES AND MEASUREMENT OF THE INCISION WERE TAKEN AND PLACED IN THE CHART FOR MD TO SEE.WILL MONITOR PATIENT.
--- NOTE | 2016-10-23 06:31 | NUR ---
PATIENT SLEEPING IVF INFUSING WELL IV SITE PATENT NO PAIN OR DISCOMFORT NOTED WILL CONTINUE TO MONITOR.
[2016-10-23 06:47] LABS: BASOPHILS # (AUTO) 0.1 K/uL (0.00-0.22); BASOPHILS % (AUTO) 0.5 % (0.0-2.0); EOSINOPHILS # (AUTO) 0.4 K/uL (0-0.4); EOSINOPHILS % (AUTO) 3.2 % (0.0-4.0); HEMOGLOBIN 11.8 g/dL (12.0-16.0); LYMPHOCYTES # (AUTO) 1.5 K/uL (2.5-16.5); LYMPHOCYTES % (AUTO) 12.8 % (20.5-51.1); MEAN CORPUSCULAR HEMOGLOBIN 29 pg (27-31); MEAN CORPUSCULAR HGB CONC 34 g/dL (33-37); MEAN CORPUSCULAR VOLUME 86 fL (80-94); MONOCYTES # (AUTO) 0.9 K/uL (0.8-1.0); MONOCYTES % (AUTO) 7.5 % (1.7-9.3); NEUTROPHILS # (AUTO) 8.5 K/uL (1.8-7.7); PLATELET COUNT (AUTO) 290 K/uL (140-450); RED BLOOD CELL COUNT(AUTO) 4.09 MIL/uL (4.20-5.40); RED CELL DISTRIBUTION WIDTH 12.6 % (11.6-13.7); WHITE BLOOD COUNT (AUTO) 11.4 K/uL (4.8-10.8)
[2016-10-23 07:09] LABS: ANION GAP 10.7 (8-16); CALCIUM 8.2 mg/dL (8.5-10.1); CARBON DIOXIDE 26.3 mmol/L (21-32); CREATININE 0.8 mg/dL (0.6-1.3)
[2016-10-23 07:10] LABS: MAGNESIUM 1.8 mg/dL (1.8-2.4); PHOSPHORUS 3.4 mg/dL (2.5-4.9)
--- NOTE | 2016-10-23 07:15 | NUR ---
RECEIVED REPORT AT BEDSIDE FROM NIGHT NURSE. PT IS AAOX4 AND SHOWS NO S/S OF DISTRESS. PT IS ON ROOM AIR. PT HAS NOTED IV R WRIST PATENT AND INTACT. PT HAS ABD INCISION LAWRENCE. PT DENIES PAIN. WILL CONTINUE TO MONITOR.
--- NOTE | 2016-10-23 07:30 | NUR ---
PATIENT STABLE REPORT ENDORSED AT BEDSIDE TO DONY BARR AND DONY AMAYA.
[2016-10-23 08:00] VITALS: BP 120/77
--- NOTE | 2016-10-23 09:20 | NUR ---
ADMINISTERED SCHEDULED MEDICATION. PT TOLERATED WELL. PT RESTING IN BED. PT SHOWS NO S/S OF DISTRESS.
[2016-10-23] MEDS: LACTOBACILLUS RHAMNOSUS GG 1 EACH CAP PO SCH (09:24)
[2016-10-23] MEDS: ONDANSETRON 4 MG/2 ML VIAL IVP PRN ×2 (12:25→23:02)
--- NOTE | 2016-10-23 14:40 | NUR ---
PATIENT SEEN BY DR OWENS. ORDERS TO ADVANCE DIET TO FULL LIQUID
[2016-10-23 16:00] VITALS: BP 117/81
[2016-10-23] MEDS ORDERED: BISACODYL 10 MG SUPP RC SCH (16:30)
--- NOTE | 2016-10-23 16:30 | NUR ---
PT IN BED RESTING WATCHING TV. PT SHOWS NO S/S OF DISTRESS. WILL CONTINUE TO MONITOR.
--- NOTE | 2016-10-23 17:30 | NUR ---
PT IS BED RESTING. PT SHOWS NO S/S OF DISTRESS. WILL CONTINUE TO MONITOR.
--- NOTE | 2016-10-23 19:05 | NUR ---
GAVE REPORT TO NIGHT NURSE AT BEDSIDE. PT ENDORSED IN STABLE CONDITION.
--- NOTE | 2016-10-23 19:06 | NUR ---
PATIENT IS CURRENTLY RESTING IN BED AWAKE ALERT ORIENTED,IVF INFUSING WELL IV SITE PATENT,CONTINUES TO HAVE TORIE TO MID ABDOMEN INCISION ENVIRONMENTAL ASSOCIATE AND NO S/S OF INFECTION NOTED. RT SIDE OF ABDOMEN PATIENT HAS 2 SMALL INCISIONS WITH TORIE LAWRENCE WELL AND THEY ARE ALSO DRY AND INTACT.LT SIDE OF ABDOMEN PATIENT HAS 3 INCISIONS WITH TORIE LAWRENCE THEY ARE ALSO DRY AND INTACT NO S/S OF INFECTION NOTED.PATIENT DENIES ANY INCISIONAL PAIN AT THIS TIME.WILL CONTINUE TO MONITOR.FAMILY AT BEDSIDE.
--- NOTE | 2016-10-23 19:45 | NUR ---
PATIENT AMBULATING IN THE HALLWAY AND AROUND THE NURSES STATION WITH HER PATIENT AMBULATING WELL AND TOLERATING ACTIVITY WELL.WILL CONTINUE TO MONITOR.
[2016-10-23 20:00] VITALS: BP 130/84
--- NOTE | 2016-10-23 20:00 | NUR ---
Patient's Plan of Care was discussed and reviewed with PEDIATRIC IMMUNOLOGIST: LIEN DAWSON
[2016-10-23] MEDS: MAGNESIUM OXIDE 400 MG TAB PO SCH (20:39)
--- NOTE | 2016-10-23 20:39 | NUR ---
MAG OXIDE PO PILL NOT ADMINISTERED AT THIS TIME MAG LEVEL IS 1.8 WNL AT THIS TIME.
[2016-10-23] MEDS: SIMETHICONE 80 MG TAB.CHEW PO PRN (20:41)
--- NOTE | 2016-10-23 20:41 | NUR ---
PATIENT IS CURRENTLY COMPLAINING OF GAS PAIN I MEDICATED THE PATIENT WITH MYLICON TO HELP HER RELIEVE THE GAS DISCOMFORT AND ENCOURAGE HER TO AMBULATE.PATIENT VERBALIZES UNDERSTANDING.
--- NOTE | 2016-10-23 21:25 | NUR ---
PATIENT IS CURRENTLY IN THE ROOM HER DAUGHTER CAME BY AND IS CURRENTLY WITH HER MOTHER TALKING.PATIENT GETS OUT OF BED SITS AT THE EDGE OF THE BED AND AMBULATES WELL.PATIENT HASN'T HAD A BM BUT IS PASSING GAS.WILL CONTINUE TO MONITOR.
--- NOTE | 2016-10-23 23:02 | NUR ---
PATIENT COMPLAINS OF FEELING VERY NAUSEATED PATIENT WAS MEDICATED WITH ZOFRAN BY DONY GONZALES.
--- NOTE | 2016-10-23 23:32 | NUR ---
NAUSEA SUBSIDED PATIENT RESTING IN BED.
--- NOTE | 2016-10-23 23:55 | NUR ---
PATIENT AWAKE AMBULATES TO THE BATHROOM AND BACK TO BED PATIENT WAS COMPLAINING OF MODERATE PAIN TO HEAD PATIENT WAS MEDICATED WILL REASSESS PAIN LEVEL.IVF INFUSING WELL IV SITE PATENT.CALL LIGHT WITHIN REACH.
[2016-10-24] VITALS: BP 133/81
--- NOTE | 2016-10-24 01:00 | NUR ---
PATIENT IS CURRENTLY SLEEPING ON AND OFF.IVF INFUSING WELL IV SITE PATENT.CALL LIGHT WITHIN REACH.
--- NOTE | 2016-10-24 02:28 | NUR ---
PATIENT IS CURRENTLY RESTING IN BED AWAKE ON AND OFF IVF INFUSING WELL IV SITE PATENT.
[2016-10-24] MEDS: POTASSIUM CHL 20 MEQ/D5-1/2NS 1,000 ML IV SCH ×2 (04:32→16:20)
[2016-10-24 05:25] LABS: BASOPHILS # (AUTO) 0.1 K/uL (0.00-0.22); BASOPHILS % (AUTO) 1.5 % (0.0-2.0); EOSINOPHILS # (AUTO) 0.4 K/uL (0-0.4); EOSINOPHILS % (AUTO) 4.3 % (0.0-4.0); HEMATOCRIT 35.1 % (36-48); HEMOGLOBIN 11.7 g/dL (12.0-16.0); LYMPHOCYTES # (AUTO) 2.1 K/uL (2.5-16.5); LYMPHOCYTES % (AUTO) 23.2 % (20.5-51.1); MEAN CORPUSCULAR HEMOGLOBIN 29 pg (27-31); MEAN CORPUSCULAR HGB CONC 33 g/dL (33-37); MEAN CORPUSCULAR VOLUME 85 fL (80-94); MONOCYTES # (AUTO) 0.7 K/uL (0.8-1.0); MONOCYTES % (AUTO) 7.3 % (1.7-9.3); NEUTROPHILS # (AUTO) 5.8 K/uL (1.8-7.7); NEUTROPHILS % (AUTO) 63.7 % (42.2-75.2); PLATELET COUNT (AUTO) 293 K/uL (140-450); RED BLOOD CELL COUNT(AUTO) 4.11 MIL/uL (4.20-5.40); RED CELL DISTRIBUTION WIDTH 12.8 % (11.6-13.7); WHITE BLOOD COUNT (AUTO) 9.1 K/uL (4.8-10.8)
[2016-10-24 06:40] LABS: ANION GAP 9.1 (8-16); CALCIUM 8.6 mg/dL (8.5-10.1); CARBON DIOXIDE 27.1 mmol/L (21-32); CREATININE 0.7 mg/dL (0.6-1.3); POTASSIUM 4.2 mmol/L (3.5-5.1)
[2016-10-24 06:42] LABS: MAGNESIUM 1.9 mg/dL (1.8-2.4); PHOSPHORUS 4.1 mg/dL (2.5-4.9)
--- NOTE | 2016-10-24 06:51 | NUR ---
PATIENT IS CURRENTLY RESTING IN BED IVF INFUSING WELL IV SITE PATENT PT HAS NO COMPLAINS OF PAIN AT THIS TIME NEEDS MET WILL CONTINUE TO MOINITOR.
--- NOTE | 2016-10-24 07:20 | NUR ---
RECEIVED PT REPORT AT BEDSIDE FROM NIGHT NURSE. PT IS SLEEPING IN BED. PT SHOWS NO S/S OF DISTRESS. IV NOTED AT R WRIST WITH IVF RUNNING. PT HAS NO C/O OF PAIN. BED IS LOWERED, FLAT, AND CALL LIGHT WITHIN REACH. WILL CONTINUE TO MONITOR.
--- NOTE | 2016-10-24 07:25 | NUR ---
PATIENT STABLE REPORT ENDORSED AT BEDSIDE TO DONY BARR AND DONY AMAYA.
[2016-10-24 08:00] VITALS: BP 122/72
[2016-10-24] MEDS: LACTULOSE 20 GM/30 ML UDC PO SCH ×2 (08:59→20:10)
[2016-10-24] MEDS: LACTOBACILLUS RHAMNOSUS GG 1 EACH CAP PO SCH (08:59)
[2016-10-24] MEDS: MAGNESIUM OXIDE 400 MG TAB PO SCH ×2 (09:00→20:10)
[2016-10-24] MEDS: DOCUSATE SODIUM 250 MG GELCAP PO SCH ×2 (09:00→20:10)
--- NOTE | 2016-10-24 09:00 | NUR ---
PT IS AWAKE IN BED. AOX4 AND SHOWS NO S/S OF DISTRESS. PT STATES HAS NO PAIN. NOTED CLEAN SURGICAL INCISION WITH TORIE ON ABD MIDLINE. ADMINISTERED SCHEDULED MEDICATIONS. PT TOLERATED WELL. CALL LIGHT WITHIN REACH. WILL CONTINUE TO MONITOR.
--- NOTE | 2016-10-24 09:10 | NUR ---
WOUND CARE NOTES: SEEN PATIENT TODAY RE: SURGICAL INCISION S/P HERNIA REPAIR BY DR. OWENS 10/23/16. 6 INTACT INCISIONS, MIDLINE ABDOMEN WITH 23 TORIE. NO S/S OF INFECTION NOTED AT THIS TIME. NO FOLLOW UP NEEDED.
--- NOTE | 2016-10-24 10:21 | NUR ---
PT IN BED SLEEPING. PT SHOWS NO S/S OF DISTRESS. WILL CONTINUE TO MONITOR.
--- NOTE | 2016-10-24 12:06 | NUR ---
10/24/16 RD FOLLOW UP COMPLETED PLEASE REFER TO NUTRITION PROGRESS NOTE UNDER CARE ACTIVITY FOR ESTIMATED NUTRITION NEEDS. RD RECOMMENDATIONS: 1. WHEN MEDICALLY APPROPRIATE, SLOWLY ADVANCE DIET TO REGULAR TOLERATED. 2. ENCOURAGE INCREASE PO INTAKE. ----FULL LIQUID DIET INCLUDES HEALTH SHAKES TID FOR AN ADDITIONAL 900 KCAL 27 GM PROTEIN DAILY 3. RD WILL F/U 3-5 DAYS; MODERATE RISK. LILIYA TAYLOR RD
--- NOTE | 2016-10-24 12:55 | NUR ---
PT STATED SHE HAD A BOWEL MOVEMENT. ALL NEEDS WERE TAKEN CARE FOR. PT SHOWS NO S/S OF DISTRESS. PT IS IN BED RESTING WITH CALL LIGHT WITHIN REACH.
--- NOTE | 2016-10-24 13:00 | NUR ---
PT TOLERATING SOFT DIET. WILL CONTINUE TO MONITOR.
--- NOTE | 2016-10-24 14:00 | NUR ---
PT IN BED RESTING AND SHOWS NO S/S OF DISTRESS. WILL CONTINUE TO MONITOR.
[2016-10-24 16:00] VITALS: BP 110/71
--- NOTE | 2016-10-24 16:00 | NUR ---
PT HAS AT BEDSIDE. PT IS DOING WELL AND STABLE. PT SHOWS NO S/S OF DISTRESS. WILL CONTINUE TO MONITOR.
[2016-10-24] MEDS: SIMETHICONE 80 MG TAB.CHEW PO PRN (17:40)
--- NOTE | 2016-10-24 18:04 | NUR ---
PT IS IN BED RESTING WITH AT BEDSIDE. PT SHOWS NO S/S OF DISTRESS. WILL CONTINUE TO MONITOR.
--- NOTE | 2016-10-24 19:05 | NUR ---
GAVE REPORT TO NIGHT NURSE. PT ENDORSED IN STABLE CONDITION.
--- NOTE | 2016-10-24 19:23 | NUR ---
NO DISTRESS/SOB/WHEEZING NOTED AT THIS TIME. NO INDICATION FOR HHN PRN TX.
--- NOTE | 2016-10-24 19:24 | NUR ---
RECEIVED REPORT FROM DAY SHIFT NURSE. PT IS AAOX4, AT BEDSIDE, DENIES ANY PAIN. ON ROOM AIR, NO S/S OF RESPIRATORY DISTRESS/DISCOMFORT NOTED. IV SITE IS PATENT, AND INTACT. PLAN OF CARE DISCUSSED, VERBALIZED UNDERSTANDING. SAFETY MEASURES CHECKED, CALL LIGHT WITH REACH. WILL CONTINUE TO MONITOR.
[2016-10-24] MEDS: HYDROcodone/APAP 10/325 MG 1 TAB TAB PO PRN (20:10)
--- NOTE | 2016-10-24 20:13 | NUR ---
DUE PO MEDS GIVEN. PROVIDED HEALTH TEACHING, VERBALIZED UNDERSTANDING. PT TOLERATED WELL.
--- NOTE | 2016-10-24 22:39 | NUR ---
PT AWAKE , RESTING AND WATCHING TV AT THIS TIME. NO SOB NOTED. CALL LIGHT WITHIN REACH.
[2016-10-25] VITALS: BP 115/73
--- NOTE | 2016-10-25 | NUR ---
V/S CHECKED AND STABLE. DENIES PAIN. NO SOB NOTED. CALL LIGHT WITHIN REACH.
--- NOTE | 2016-10-25 02:00 | NUR ---
EYES CLOSED, RESTING QUIETLY, BREATHING EVEN AND UNLABORED. CALL LIGHT WITH REACH.
--- NOTE | 2016-10-25 04:27 | NUR ---
PT IN LEFT SIDE LYING POSITION, SLEEPING. NOT IN DISTRESS. NO SOB NOTED. CALL LIGHT WITHIN REACH.
--- NOTE | 2016-10-25 06:44 | NUR ---
PT AWAKE AND STATED " I AM FEELING UNCOMFORTABLE WITH MY IV, CAN YOU REMOVE IT?" , EXPLAINED REASON FOR HAVING AN IV ACCESS. PT INSISTED TO REMOVE IV. DISCONTINUE IV, CANNULA INTACT. APPLIED PRESSURE, SECURED WITH TAPE.
--- NOTE | 2016-10-25 07:21 | NUR ---
ENDORSED PT TO DAY SHIFT NURSE FOR CONTINUITY OF CARE. PT IN STABLE CONDITION.
--- NOTE | 2016-10-25 07:29 | NUR ---
REPORT RECEIVED FROM [place] NURSE, PT SLEEPING QUIETLY, RESP EVEN UNLABORED IN NAD, SKIN COLOR WNL, NO IV ACCESS PT REFUSED NEW START PER REPORT, AROUSED EASILY WITH VOICE, NO IMMEDIATE NEEDS VOICED AT THIS TIME, SAFETY MEASURES ENSURED, PLAN DISCUSSED, CALL BEST WITHIN REACH, WILL CONTINUE TO MONITOR
[2016-10-25 08:00] VITALS: BP 100/49
[2016-10-25] MEDS: MAGNESIUM OXIDE 400 MG TAB PO SCH (08:41)
[2016-10-25] MEDS: LACTOBACILLUS RHAMNOSUS GG 1 EACH CAP PO SCH (08:41)
[2016-10-25] MEDS: LACTULOSE 20 GM/30 ML UDC PO SCH (08:41)
[2016-10-25] MEDS: DOCUSATE SODIUM 250 MG GELCAP PO SCH (08:41)
--- NOTE | 2016-10-25 09:38 | NUR ---
PT AWAKE ALERT OX4, RESP EVEN UNLABORED, PT [employer] BREAKFAST WELL, NO C/O PAIN OR NAUSEA, PT MOVED TO 112A FOR MAINTENANCE PURPOSE, PT AGREEABLE, ALL BELONGINGS MOVED WITH PATIENT, PT ORIENTED TO NEW ROOM, CALL BEST WITHIN REACH, SAFETY PRECAUTIONS IN PLACE, NO IMMEDIATE NEEDS AT THIS TIME, WILL CONTINUE TO MONITOR.
--- NOTE | 2016-10-25 11:23 | NUR ---
CM NOTE PER ETHICS OFFICER AJ, PATIENT HAS BEEN SWITCHED TO [facility] OF 10/24/16. FAXED CONCURRENT REVIEW FOR 10/22/16-10/23/16 TO [facility] FAX#[phone] PHONE ALBERTO [phone]
--- NOTE | 2016-10-25 11:45 | NUR ---
PT AOX4, ANXIOUS TO GO HOME, PT STATES SHE WAS TOLD SHE IS GETTING DC'D TODAY BY THIS AM, PER RESIDENT, PLAN IS TO DC HOME THIS AFTERNOON. PT MADE AWARE OF PLAN. PT DENIES PAIN OR DISCOMFORT, UP AMBULATING WELL WITH STEADY GAIT, ALL SAFETY MEASURES MET, CALL BEST WITHIN REACH, AT BEDSIDE, PT GETTING READY TO TAKE SHOWER. WILL CONTINUE TO MONITOR
[2016-10-25] MEDS ORDERED: LACT10CA PO (14:00)
[2016-10-25] MEDS ORDERED: SIME80CT27 PO (14:00)
[2016-10-25] MEDS ORDERED: DOCU-463 PO (14:00)
[2016-10-25] MEDS ORDERED: ONDA4ODT1 SL (14:00)
[2016-10-25] MEDS ORDERED: ACET-2858 PO (14:06)
[2016-10-25] MEDS ORDERED: ACET-2863 PO (14:09)
[2016-10-25 14:18] VITALS: BP 100/49
[2016-10-25 15:00] VITALS: BP 109/72
--- NOTE | 2016-10-25 15:00 | NUR ---
DC INSTRUCTION AND RX GIVEN AND EXPLAINED TO PT, PT VERBALIZED FULL UNDERSTANDING OF DC INSTRUCTIONS, PT TO F/U WITH PCM IN 3DAYS AND SURGEON DR OWENS IN 7DAYS, NUMBERS PROVIDED, SURGICAL WOUNDS ON ABD WELL APPROXIMATED WITH TORIE, CLEAN DRY INTACT, NO REDNESS OR SWELLING OR DRAINAGE NOTED, PHOTOS TAKEN, PT UP OUT OF BED WITHOUT PROBLEM, AMBULATES WELL WITH STEADY GAIT, DENIES PAIN OR DISCOMFORT, DC HOME NOW WITH , ESCORTED OUT BY RN
== END 2016-10-25 15:20 | disposition home or self-care (01) | DRG 221 ==
LOC: MED 21:53 → MTU 23:23
PROVIDERS: ADMIT Family Medicine; ATTEND Family Medicine
PROC: 0DN83ZZ Release Small Intestine, Percutaneous Approach (ICD-10-PCS; principal; 2016-10-22)
PROC: 0DT80ZZ Resection of Small Intestine, Open Approach (ICD-10-PCS; 2016-10-22)
PROC: 0WQF0ZZ Repair Abdominal Wall, Open Approach (ICD-10-PCS; 2016-10-22)
DX: K42.1 Umbilical hernia with gangrene (principal); E43 Unspecified severe protein-calorie malnutrition; K55.9 Vascular disorder of intestine, unspecified; E66.01 Morbid (severe) obesity due to excess calories; E78.5 Hyperlipidemia, unspecified; E87.6 Hypokalemia; E03.9 Hypothyroidism, unspecified; E83.42 Hypomagnesemia; Z79.899 Other long term (current) drug therapy; Z68.36 Body mass index [BMI] 36.0-36.9, adult; Z71.3 Dietary counseling and surveillance; K43.7 Other and unspecified ventral hernia with gangrene
CPT/HCPCS: 36415; 71010; 74000; 74020; 80048; 80053; 81001; 82040; 83036; 83735; 83880; 84100; 84436; 84439; 84443; 84479; 85025; 85610; 85730; 86886; 86900; 86901; 87081; 88302; 88307; 93005; 96361; 96374; 96375; 99285; J0330; J1100; J1170; J1885; J2001; J2060; J2250; J2270; J2405; J2543; J2704; J3010; J3475; J3480; J3490; J7030; J7060; Q0092

== ENCOUNTER 2016-10-26 05:20 | Observation (INO) | payer MEDICAID, OTHER ==
[~2016-10-26] VITALS: Ht 170.2 cm; Wt 104.3 kg
--- NOTE | 2016-10-26 00:36 | NUR ---
PT TO CT IN STABLE CONDITION. Addendum: 10/27/16 at 0116 by Ella Hanley RN ENTERED IN ERROR FOR WRONG DATE
[~2016-10-26 05:20] MED LIST changes: -ACET-2991 PO; -AMOX-999 PO; +AUGMENTIN 500 M1 TAB PO; +CULTURELLE10 Billion PO; +HYDROCODONE BIT1 TA5 PO; +NORCO 10-325 T1 EACH PO; +NORCO 325 MG-7.1 TAB PO; -ONDA4TAB PO; +SIMETHICONE80 M2 PO; +STOOL SOFTENER PO; +ZOFRAN ODT4 MG SL; +ZOFRAN4 M1 PO
--- NOTE | 2016-10-26 05:23 | NUR ---
PT TAKEN TO BED 5
[2016-10-26 05:30] VITALS: BP 127/85
--- NOTE | 2016-10-26 05:48 | NUR ---
Dr. Thomas evaluating patient at bedside.
[2016-10-26] MEDS ORDERED: MORPHINE SULFATE 4 MG/ML SYR IVP ONE ×2 (05:55→07:00)
--- NOTE | 2016-10-26 05:57 | NUR ---
BIB SPOUSE, C/O ABD PAIN POST OP, HERNIA SURG ON 10/23, RELEASED FROM HOSP ON . PT DENIES N/V/D; AAOX4 WITH EVEN AND STEADY GAIT; LUNGS CLEAR BL; HR EVEN AND REGULAR; PT DENIES ANY FEVER, CP, SOB, OR COUGH AT THIS TIME; PATIENT STATES PAIN OF 10/10 AT THIS TIME; VSS; PATIENT POSITIONED FOR COMFORT; HOB ELEVATED; BEDRAILS UP X2; BED DOWN. ER MD MADE AWARE OF PT STATUS.
--- NOTE | 2016-10-26 06:14 | NUR ---
LABS BEING DONE AT BEDSIDE
--- NOTE | 2016-10-26 06:15 | NUR ---
PT BEING TAKEN TO CT VIA WC IN STABLE CONDITION
--- NOTE | 2016-10-26 06:33 | NUR ---
PT RETURN FROM CT
[2016-10-26] MEDS ORDERED: ONDANSETRON 4 MG/2 ML VIAL IVP ONE ×2 (06:55→07:05)
[2016-10-26] MEDS ORDERED: ACETAMINOPHEN 325 MG TAB PO PRN (07:05)
[2016-10-26] MEDS ORDERED: HYDROcodone/APAP 7.5/325 MG 1 TAB PO SCH (07:05)
--- NOTE | 2016-10-26 07:18 | NUR ---
Patient appears to be resting comfortably in bed. Vital Signs within normal limits. Respirations even and unlabored. STATES "I'M FINE RIGHT NOW"; FAMILY AT BEDSIDE; WILL CONTINUE TO MONITOR.
--- NOTE | 2016-10-26 07:20 | NUR ---
CALLED MST TO GIVE REPORT; MST STATED WILL CALL BACK WHEN RN IS ASSIGNED TO PT.
--- NOTE | 2016-10-26 07:22 | NUR ---
REPORT TO KALYANI NAPOLES
--- NOTE | 2016-10-26 07:46 | NUR ---
REPORT GIVEN TO LUIGI NAPOLES.
--- NOTE | 2016-10-26 07:56 | NUR ---
Patient will be admitted to care of DR. MARLEY. Admited to TELEMETRY. Will go to room 124A. Belongings list completed. Report to DONY MEYERS.
[2016-10-26 08:00] VITALS: BP 103/66
--- NOTE | 2016-10-26 08:00 | NUR ---
Admitted from ED , with chief complaint of ABDOMINAL PAIN. PT AAOX4. NO SOB NOTED. NO C/O PAIN AT THIS TIME. IV TO LEFT HAND PATENT AND INTACT. CHEST CLEAR. ABDOMEN TENDER, WITH HYPOACTIVE BOWEL SOUNDS NOTED, WITH SURGICAL INCISION ON ABDOMEN, TORIE INTACT, S/P ABDOMINAL HERNIA REPAIR ON 10/19/2016. WOUND OPEN TO AIR, NO SIGNS AND SYMPTOMS OF INFECTION NOTED. NO EDEMA NOTED. PT IS A 51 y/o ,Female, Cooperative,oriented to call light, bed, phone,television, bathroom, smoking policy,visiting hours, procedures, ID bracelet on. Belongings list checked. INSTRUCTED NOT TO EAT AND DRINK. INSTRUCTED TO CALL FOR ASSISTANCE, CALL LIGHT WITHIN REACH. PT VERBALIZED UNDERSTANDING.
[2016-10-26] MEDS ORDERED: LACTULOSE 20 GM/30 ML UDC PO SCH (09:08)
[2016-10-26] MEDS ORDERED: SODIUM PHOSPHATE 118 ML ENEM RC SCH (09:09)
[2016-10-26] MEDS: NACL 0.9% 1,000 ML IV SCH ×2 (09:21→23:26)
[2016-10-26] MEDS: HYDROmorphone 1 MG/ML AMP IVP PRN ×3 (09:21→22:35)
[2016-10-26] MEDS: DOCUSATE SODIUM 100 MG GELCAP PO SCH ×2 (09:25→21:00)
[2016-10-26] MEDS: PANTOPRAZOLE 40 MG INJ VIAL IVP SCH (09:25)
[2016-10-26] MEDS ORDERED: HYDROcodone/APAP 7.5/325 MG 1 TAB PO PRN (09:55)
--- NOTE | 2016-10-26 10:00 | NUR ---
ENEMA DONE AT THE BEDSIDE. WILL MONITOR FOR BOWEL MOVEMENT.
--- NOTE | 2016-10-26 10:33 | NUR ---
PATIENT HAS BEEN SCREENED AND CATEGORIZED MODERATE NUTRITION RISK. PATIENT WILL BE SEEN WITHIN 3-5 DAYS OF ADMISSION. 10/29-10/[address]
[2016-10-26 12:00] VITALS: BP 106/59
--- NOTE | 2016-10-26 12:00 | NUR ---
PT HAD BMX1, VERY SMALL IN AMOUNT PER PT. NURSE WERE NOT ABLE TO SEE IT PT FLUSHED IT RIGHT AWAY.
--- NOTE | 2016-10-26 14:15 | NUR ---
PT RESTING. NO SOB NOTED. NO SIGNS OF PAIN. PT JUST HAD PAIN MEDICINE.
[2016-10-26] MEDS ORDERED: MAGNESIUM CITRATE 300 ML BTL PO SCH (15:00)
[2016-10-26] MEDS: ONDANSETRON 4 MG/2 ML VIAL IVP PRN ×2 (15:49→22:35)
[2016-10-26 16:00] VITALS: BP 122/70
--- NOTE | 2016-10-26 16:30 | NUR ---
PT RESTING COMFORTABLY. NO SOB NOTED. NO SIGNS OF PAIN. WILL CONTINUE TO MONITOR.
--- NOTE | 2016-10-26 19:00 | NUR ---
PT AWAKE WATCHING TV, NO SOB NOTED. NO C/O PAIN AT THIS TIME. NPO MAINTAINED. WILL ENDORSE TO NEXT SHIFT NURSE FOR CONTINUITY OF CARE.
--- NOTE | 2016-10-26 19:18 | NUR ---
RECEIVED PT IN STABLE CONDITION FROM DONY MEYERS. NO SOB, NO SIGNS OF DISTRESS. PT IS AOX4, AMBULATORY. VS STABLE ON ROOM AIR. IV TO LT HAND 22G PATENT, ASYMPTOMATIC, INTACT, IVF RUNNING. PT DENIES PAIN AT THIS TIME. PT S/P HERNIA REPAIR WITH BOWEL RESECTION ON 10/19, INCISION WITH TORIE TO ABD, DRY AND INTACT, NO DRAINAGE NOTED, LAWRENCE NO REDNESS OR S/S INFECTION NOTED. PLAN OF CARE DISCUSSED WITH PT. SAFETY MEASURES IN PLACE. CALL LIGHT WITHIN REACH. WILL CONTINUE TOP MONITOR.
[2016-10-26 20:00] VITALS: BP 119/74
--- NOTE | 2016-10-26 20:09 | NUR ---
CALL FROM CT, CT ASKED FOR CLARIFICATION OF IV OR ORAL OR BOTH FOR CONTRAST. PAGED MD TIJERINA FOR CLARIFICATION AND FOR CONSENT TO BE SIGNED BY A PHYSICIAN. WAITING FOR CALL BACK.
--- NOTE | 2016-10-26 20:12 | NUR ---
SPOKE WITH MD BREEZY MD CLARIFIED THAT CT ABD/PELVIS IS TO BE DONE WITH ORAL AND IV CONTRAST. MS STATED TO HAVE CONSENT FAXED TO [facility] TO BE SIGNED BY A PHYSICIAN. WILL FOLLOW UP.
--- NOTE | 2016-10-26 20:29 | NUR ---
SPOKE WITH BRENTON AT [address] UNIT, BRENTON STATED SHE WILL HAVE MD WAGGONER SIGN CONSENT AND FAX IT BACK. FAXED CONSENT TO [facility] TO BE SIGNED BY PHYSICIAN.
--- NOTE | 2016-10-26 20:55 | NUR ---
SIGNED CONSENT FOR CT RECEIVED, PLACED IN CHART. ASSISTANT EDITOR MADE AWARE.
[2016-10-26] MEDS: LACTULOSE 20 GM/30 ML UDC PO SCH (21:00)
--- NOTE | 2016-10-26 21:00 | NUR ---
PT TOLERATED DUE MEDS WELL. NO SOB, NO SIGNS OF DISTRESS. PT DENIES PAIN AT THIS TIME. IV SITE ASYMPTOMATIC, INTACT, PATENT, IVF RUNNING. PLAN OF CARE DISCUSSED WITH PT. SAFETY MEASURES IN PLACE. CALL LIGHT WITHIN REACH. WILL CONTINUE TO MONITOR.
--- NOTE | 2016-10-26 21:18 | NUR ---
ORAL CONTRAST ADMINISTRATION STARTED.
--- NOTE | 2016-10-26 22:35 | NUR ---
PT C/O PAIN AND NAUSEA, MEDICATED PT PER MD ORDER. PT TOLERATED MEDS WELL. NO SOB, NO SIGNS OF DISTRESS. IV SITE ASYMPTOMATIC, INTACT, PATENT, IVF RUNNING. ASSISTED PT TO BATHROOM, PT WITH SMALL BM. PLAN OF CARE DISCUSSED WITH PT. SAFETY MEASURES IN PLACE. CALL LIGHT WITHIN REACH. WILL CONTINUE TO MONITOR.
--- NOTE | 2016-10-26 22:40 | NUR ---
PT FINISHED ORAL CONTRAST SOLUTION.
[2016-10-27] VITALS: BP 114/71
--- NOTE | 2016-10-27 00:23 | NUR ---
JAVA WEB APPLICATION DEVELOPER LINDA STARTED NEW 20G IV TO LT FA. PT TOLERATED WELL. CALLED CT TO RACING MECHANIC PT FOR CT.
--- NOTE | 2016-10-27 00:36 | NUR ---
PT TO CT IN STABLE CONDITION
--- NOTE | 2016-10-27 01:14 | NUR ---
PT RETURN FROM CT IN STABLE CONDITION.
--- NOTE | 2016-10-27 01:40 | NUR ---
PT STATED SHE HAD 3 SMALL BMS IN BATHROOM
--- NOTE | 2016-10-27 02:13 | NUR ---
CALL FROM HELLEN LEVIN AT [facility], CRITICAL ABD/PELVIS CT RESULT RECEIVED. WILL PAGE TO MAKE AWARE.
--- NOTE | 2016-10-27 02:20 | NUR ---
RADHA TIJERINA SENIOR QA AUTOMATION ENGINEER FOR MD MARLEY
--- NOTE | 2016-10-27 02:24 | NUR ---
CALL BACK FROM MD BREEZY MD MADE AWARE OF CRITICAL ABD/PELVIS CT WITH CONTRAST RESULT. NO ORDERS GIVEN.
--- NOTE | 2016-10-27 02:32 | NUR ---
PT ASLEEP IN BED. NO SOB, NO SIGNS OF DISTRESS. IV SITE ASYMPTOMATIC, INTACT, PATENT, IVF RUNNING. SAFETY MEASURES IN PLACE. CALL LIGHT WITHIN REACH. WILL CONTINUE TO MONITOR.
[2016-10-27 04:00] VITALS: BP 102/57
--- NOTE | 2016-10-27 04:05 | NUR ---
VS STABLE ON ROOM AIR. PT DENIES PAIN AT THIS TIME. IV SITE ASYMPTOMATIC, INTACT, PATENT, IVF RUNNING. PLAN OF CARE DISCUSSED WITH PT. SAFETY MEASURES IN PLACE. CALL LIGHT WITHIN REACH. WILL CONTINUE TO MONITOR
--- NOTE | 2016-10-27 07:20 | NUR ---
ENDORSED PT IN STABLE CONDITION TO DONY RUEDA. ALL NEEDS HAVE BEEN MET AT THIS TIME.
--- NOTE | 2016-10-27 07:30 | NUR ---
RECEIVED PT IN STABLE CONDITION FROM DONY SPENCER. PT IS SLEEPING BUT EASILY AWAKING BY INITIAL ASSESSMENT. NO SIGNS OF DISTRESS. ON ROOM AIR. PT S/P HERNIA REPAIR WITH BOWEL RESECTION ,INCISION WITH TORIE TO ABD, DRY AND INTACT, NO DRAINAGE NOTED, LAWRENCE NO REDNESS OR S/S INFECTION NOTED.IV SITE PATENT AND INTACT. PT DENIES PAIN AT THIS TIME. PLAN OF CARE DISCUSSED WITH PT,PT VERBALIZED UNDERSTANDING. SAFETY MEASURES IN PLACE. CALL LIGHT WITHIN REACH. VSS ,WILL CONTINUE TO MONITOR PT.
[2016-10-27 08:00] VITALS: BP 100/64
--- NOTE | 2016-10-27 09:20 | NUR ---
DUE MEDS GIVEN. PT TOLERATED WELL. NO S/S OF RESPIRATORY DISTRESS NOTED. PT DENIES PAIN AT THIS TIME.
[2016-10-27] MEDS: PANTOPRAZOLE 40 MG INJ VIAL IVP SCH (09:34)
[2016-10-27] MEDS: LACTULOSE 20 GM/30 ML UDC PO SCH (09:34)
[2016-10-27] MEDS: DOCUSATE SODIUM 100 MG GELCAP PO SCH (09:34)
--- NOTE | 2016-10-27 10:30 | NUR ---
IN TO SEE PT. DR. JACKSON SUGGESTED PT TO WAIT FOR SURGEON TO EVALUATE PT. PT REFUSED. RISKS AND BENEFITS EXPLAINED TO PT. PT STILL REFUSED TO WAIT FOR SURGEON. PT SIGNED PAPER WORK TO [employer]MA FORM.
--- NOTE | 2016-10-27 11:40 | NUR ---
PT LEFT UNIT WITH HER . AWAKE, ALERT, AND ORIENTED. NO S/S OF RESPIRATORY DISTRESS NOTED. NO DISCOMFORT OR PAIN COMPLAINED. ALL PERSONAL BELONGINGS WITH PT.
[2016-10-27] MEDS: NACL 0.9% 1,000 ML IV SCH (11:56)
== END 2016-10-27 11:40 | disposition left against medical advice (07) ==
LOC: MED 05:20 → MTU 07:11
PROVIDERS: ADMIT Family Medicine; ATTEND Family Medicine
DX: K56.69 Other intestinal obstruction (principal); E66.9 Obesity, unspecified; Z98.890 Other specified postprocedural states
CPT/HCPCS: 36415; 71010; 74176; 74177; 80048; 80053; 80061; 80305; 81001; 82140; 82150; 83036; 83605; 83690; 83735; 83880; 84100; 84439; 84443; 84484; 85025; 85610; 85730; 87040; 87081; 87086; 93005; 93307; 96361; 96365; 96375; 96376; 99285; C9113; G0378; J0696; J1170; J2270; J2405; J7030; J7060; Q0092; Q9967

== ENCOUNTER 2021-07-09 09:47 | Emergency (ER) | payer SELFPAY ==
[~2021-07-09] VITALS: Ht 172.7 cm; Wt 108.0 kg
[~2021-07-09 09:47] MED LIST changes: +ACET-2991 PO; -AUGMENTIN 500 M1 TAB PO; -CULTURELLE10 Billion PO; +DOCU250C39 PO; +HYDR-5080 PO; -HYDROCODONE BIT1 TA5 PO; +LACT10CA PO; -NORCO 10-325 T1 EACH PO; -NORCO 325 MG-7.1 TAB PO; +ONDA-188 SL; +ONDA4TAB PO; +SIME80CT27 PO; -SIMETHICONE80 M2 PO; -STOOL SOFTENER PO; -ZOFRAN ODT4 MG SL; -ZOFRAN4 M1 PO
[2021-07-09 09:55] VITALS: BP 159/86
[2021-07-09] MEDS ORDERED: FAMO-92 PO (11:34)
[2021-07-09] MEDS ORDERED: PROM6.2590 PO (11:34)
[2021-07-09] MEDS ORDERED: ONDA-188 PO (11:34)
[2021-07-09 11:48] VITALS: BP 119/72
== END 2021-07-09 11:48 | disposition home or self-care (01) ==
LOC: MED 09:47
DX: U07.1 COVID-19 (principal); K29.70 Gastritis, unspecified, without bleeding; K43.9 Ventral hernia without obstruction or gangrene
CPT/HCPCS: 99284; U0003